=== PATIENT | female | born 1965 | race Caucasian/White ===

== ENCOUNTER → 2016-08-30 | Outpatient (CLI) | payer BC ==
[~2016-08-30] MED LIST: BACLOFEN 10MG T10 MG PO; CELEBREX200 MG PO; CYCLOBENZAPRINE10 M1 OR; CYMBALTA60 MG PO; FLECTOR1.3% TP; FLEXERIL10 MG PO; GABAPENTIN300 M1 PO; HYDROCODONE1 TABLET PO; KEFLEX 500MG.500 MG PO; LIDODERM 5% PA1 EACH TD; METOPROLOL SUCC50 M1 PO; NOMEDS XX; PANTOPRAZOLE SO40 M1 PO; SERTRALINE 100100 MG PO; VIBRAMYCIN 100100 MG PO
--- NOTE | 2016-08-30 19:24 | RADIOLOGY REPORT PS360 ---
KNEE-3 VIEWS-RT INDICATION: Unable straighten right knee due to pain swelling about knee TECHNIQUE: 3 views right knee COMPARISON: None available FINDINGS: No fracture nor dislocation apparent. Right knee intact with no fracture Cannot exclude an suspect small joint effusion suprapatella bursa Visualized joint space well maintained with only borderline narrowing of the medial compartment on this nonweightbearing study.. Normal mineralization. There is mild sharpening joint margins reflecting early marginal osteophyte formation. Subtle but noted and may reflect very early degenerative change.. . IMPRESSION: No fracture. No prominent findings. Suspect small joint effusion suprapatella bursa . Minor sharpening at joint margins may reflect very early degenerative change
== END ==
LOC: RAD 11:46
DX: M25.561 Pain in right knee (principal)

== ENCOUNTER → 2016-11-08 | Outpatient (CLI) | payer BC ==
[2016-11-08 09:12] LABS: BUN 19 mg/dL (7-18)
[2016-11-08 09:13] LABS: GFR (ESTIMATED) 88 ML/MIN (59-)
--- NOTE | 2016-11-11 06:41 | RADIOLOGY REPORT PS360 ---
MRI-BRAIN W/WO HISTORY: Syncope SYNCOPE, UNSPECIFIED SYNCOPE TYPE ORDERING PHYSICIAN: Edda Flores MD PATIENT AGE: 51 years COMPARISON: None TECHNIQUE: Standard multiplanar multiecho sequences are performed without and with contrast. FINDINGS: No midline shift, mass effect, intracranial hemorrhage, or hydrocephalus is evident. There is no obstructed diffusion. No evidence of acute infarction. No enhancing lesions are apparent. The cerebellopontine angles, cerebellum, and brainstem are unremarkable. The pituitary and optic chiasm and corpus callosum are unremarkable. There is minimal nonspecific T2 white matter hyperintensities noted in the frontal lobe and periventricular region. These do not enhance and do not show restricted diffusion and may be related to minimal periventricular ischemic gliotic change. The hippocampal gyri are unremarkable in the temporal horns are symmetric. No mastoid effusion minimal mucosal thickening of the paranasal sinuses nonspecific. IMPRESSION: 1. No acute intracranial pathology. 2. Nonspecific minimal white matter hyperintensities
== END ==
LOC: RAD 08:58
PROVIDERS: Family Medicine
DX: R55 Syncope and collapse (principal)
CPT/HCPCS: A9576

== ENCOUNTER 2016-12-24 10:53 | Emergency (ER) | payer BC ==
[~2016-12-24] VITALS: Ht 172.7 cm; Wt 108.9 kg
[2016-12-24] MEDS ORDERED: BACLOFEN10 MG PO (11:02)
[2016-12-24] MEDS ORDERED: TRAZODONE50 MG PO (11:03)
[2016-12-24] MEDS ORDERED: METOPROLOL SUCC50 M4 PO (11:03)
--- NOTE | 2016-12-24 11:17 | Emergency Room Report ---
History of Present Illness Time Seen by [id number] Presenting Problem in Triage Pt arrived:Walked Presenting Problem:PT FAMILY REPORTS EPISODE OF SUDDENLY "EVERYTHING GOES FUZZY " WHOLE BODY FELT NUMB AND LIMP, FAMILY REPORTS A BLANK STARE DURING EVENT AND THEN PT REPORTS FEELING LIKE HAVING A HEADACHE FOR A FEW MINUTES AFTERWARD AND THEN L JAW PAIN. 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 N Clinical Suspician of Infection? N Mental Status: 1 - Regular (Normal Baseline) Sepsis Risk:Low Sepsis Risk Have you (or family members/close friends) recently traveled outside the [place]? N If Yes, where/when: Have you had exposure to infectious disease within the past month? N TB? Other? Specify: Source patient, RN notes reviewed, family, RN/MD Exam Limitations no limitations Comment This is a 51-year-old lady arriving to the emergency room by POV, together with her daughter. 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 Episode lasted 4-5 minutes, witnessed by her daughter. Upon waking up she was having a headache, no neurological deficits. Patient advised that she was simply unable to communicate with anybody around, but she was not completely unresponsive. Apparently there is a lot of misscommunication between family members and patient, as she she has not disclosed to them that she has had similar episodes over the past 2 years. She hasn't recently seen her PCP who requested for her to neurologist, Dr. Tricia Hoyt, with whom she has an appointment on . Additionally patient has multiple other problems, including chronic low back pain, for which she takes Tylenol/Motrin, peripheral neuropathy for which she takes gabapentin, as well as hot flashes possibly postmenopausal. She has seen Dr. Flores for these hot flashes but PCP advised her to delay treatment of this condition based on her pending workup with neurology. ALLERGIES Coded Allergies: acetaminophen (From PERCOCET) (Mild, 11/08/16) oxycodone (From PERCOCET) (Mild, 11/08/16) Penicillins (11/08/16) Sulfa (Sulfonamide Antibiotics) (11/08/16) azithromycin (11/08/16) Home Medications Active Scripts Pantoprazole Sodium 40 MG PO QHS #30 TAB Ref 4 Prov: 03/15/14 Reported Medications DULOXETINE HCL (Cymbalta 60MG) 60 MG PO DAILY Gabapentin 300 MG PO TID #90 Baclofen 10 MG PO TID #90 TAB Trazodone Hcl (Trazodone HCl) 50 MG PO QHS #30 Metoprolol Succinate (Metoprolol Succinate XL) 50 MG PO DAILY #30 History Medical History General CAD? No Angina: Yes CT: No Hypertension? No Hyperlipidemia? No CHF? No DVT? No PE? No COPD? No Asthma? Yes Anemia? No GERD? No Gastric ulcers? No GI Bleed? No Hernia? Yes Thyroid Problems? No Hypothyroidism? No CVA? No Seizures? No Diabetes? No Renal Insuffiency? No End Stage Renal Disease? No UTI? No Stones? No GB Disease: No Nephritic Syndrome? No Asplenia? No Hepatitis? No Sickle Cell Disease? No Arthritis? Yes Migraines? No Cataracts? No Glaucoma? No MRSA? Yes HIV? No TB? No Anxiety? No Depression? No Cancer? No More? 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/A Family History Family Hx Diabetes Yes CAD Yes Hypertension Yes Hyperlipidemia Yes Cancer Yes TB No Social History Smoking Hx Smoker: Current Every Day Smoker Tobacco: Yes Type Cigarettes Packs/day 1 1/2 - 2 Packs Alcohol Alcohol: No Review of Systems All Other Systems Reviewed and Negative Psychiatric/Neurological other (syncopal episode) Physical Exam Vital Signs Vital Signs Date Time Temp Pulse Resp B/P Pulse O2 O2 Flow FiO2 Ox Delivery Rate 12/24 1445 98.0 72 20 130/74 95 12/24 1327 98.2 76 20 136/89 98 12/24 1215 74 20 135/99 97 12/24 1210 20 12/24 1055 98.1 75 18 131/91 96 General Appearance normal appearance, WD/WN, no apparent distress Eye Exam - bilateral eye normal exam, bilateral eye PERRL, bilateral eye EOMI Neck normal inspection, non-tender, supple, full range of motion Respiratory Status Yes: trachea midline, chest symmetrical, non tender chest. No: respiratory distress. Lung Sounds bilateral: normal breath sounds, lungs clear. 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 No Comment Family members, hereby present at patient's bedside, requests "something done" about patient's condition sooner than 01/07/17, date of her neurology appointment. I have asked one of the ER nurses, Freya Francis, to schedule patient with Dr. Sheikh, our neurologist, who could see patient in the office, this coming Friday.. Patient and family members were advised of attempt to switch her to a different neurologist, they refused to see Dr. Sheikh. Is no Tito called [facility] neurology, and I was able to personally discuss patient's care with her own neurologist, Dr. Tricia Hoyt, who has seen patient so far for peripheral neuropathy. Dr. Zeng agreed to switch patient's appointment to a sooner date, will have staff contact family, within 24 hours with a new appointment date. She also recommended patient to be started on Keppra, 250 mg 2x/day, for the first week, followed by Keppra, 500 mg 2x/day after worse. Patient advised to avoid heights, operate machinery, driving vehicles was seen and cleared by neurology. In my medical opinion patient does not have a life threatening condition at this time, she can have the rest of workup as outpatient, within the next few days, with neurology, as described above. Results/Orders Laboratory Tests 12/24/16 1158: Urine Color YELLOW, Urine Appearance CLEAR, Urine pH 6.0, Ur Specific [place] 1.010, Urine Protein NEGATIVE, Urine Ketones NEGATIVE, Urine Blood 2+ H, Urine Nitrate NEGATIVE, Urine Bilirubin NEGATIVE, Urine Urobilinogen 0.2, Ur Leukocyte Esterase NEGATIVE, Urine WBC OCC, Ur Squamous Epith Cells 5-10, Urine Bacteria 1 +, Urine Mucus OCC, Urine Glucose NEGATIVE 12/24/16 1155: Sodium 140, Potassium 4.0, Chloride 105, Carbon Dioxide 27, BUN 13, Creatinine 0.7, Estimated Creat Clear 162, Estimated GFR (MDRD) 88, Glucose 117 H, Calcium 8.5, Total Bilirubin 0.5, AST 12 L, ALT 23, Alkaline Phosphatase 91, Total Protein 6.9, Albumin 3.6, Globulin 3.3 H, Albumin/Globulin Ratio 1.1 12/24/16 1116: WBC 8.5, RBC 4.60, Hgb 13.8, Hct 40.4, MCV 87.8, RDW 16.6, Plt Count 266, Gran % 66.8, Gran # 5.7, Lymphocytes % 29.5, Monocytes % 3.7, Lymphocytes # 2.5, Monocytes # 0.3, PUBS MCHC 34.2, MCH 30.0 Orders Procedure Date/time Status DIET-NOTHING BY MOUTH 12/[address] HEAD REQ 12/24 1104 Complete IV SALINE LOCK 12/24 1104 Active URINALYSIS/COMPLETE 12/24 1104 Complete CBC WITH AUTO DIFF 12/24 1104 Complete CHEM 12 PROFILE 12/24 1104 Complete CM/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 of ischemic chgs, no ectopy, normal QRS, normal OH, normal EKG, no EKG for comparison, non-spec. ST/Twave chgs, ST elevation, ST depression, LBBB, RBBB, ectopy, abnormal Q waves XRAY/CT/US XRAY/CT/US CT head CT interpretation by discussed w/radiologist CT Results normal/NAD (no ICH), no fracture seen Departure Departure Time of Disposition 1415 Disposition DC Home or Self Care(routine) Clinical Impression Primary Impression: Seizure, petit mal Condition STABLE Referrals Mark DELGADO,Edda Rahman (PCP/Family) TRICIA HOYT Patient Instructions Seizure Disorder -- Adult Additional Instructions Please follow-up with Dr. Tricia Hoyt as soon as possible. Please discontinue the Cymbalta immediately, as one of its side effects please epilepsy/seizures. Dr. Hoyt recommended starting you on a seizure medication, Keppra 250mg 2x/ day for 1st week, after which you can increase the dose to 500mg 2x/day. Dr. Zeng's office advised that they will call today or tomorrow and reschedule your appointment sooner. Please do NOT climb on heights, operate machinery, drive till seen and cleared by the neurologist. Discharge Counseling Counseled pt/family regarding diagnosis, test results, medications/RX, home care, follow up needs Comment Please follow-up with Dr. Tricia Hoyt as soon as possible. Please discontinue the Cymbalta immediately, as one of its side effects please epilepsy/seizures. Dr. Hoyt recommended starting you on a seizure medication, Keppra 250mg 2x/ day for 1st week, after which you can increase the dose to 500mg 2x/day. Dr. Zeng's office advised that they will call today or tomorrow and reschedule your appointment sooner. Please do NOT climb on heights, operate machinery, drive till seen and cleared by the neurologist. Prescriptions Current Visit Scripts Levetiracetam (Keppra) 250 MG PO BID #14 TAB Levetiracetam (Keppra) 500 MG PO BID #42 TAB TIZANIDINE HCL (Zanaflex) 2 MG PO TIDP PRN pain #30 CAP ED Critical Care Critical Care No at 0911
[2016-12-24 11:25] LABS: HEMOGLOBIN 13.8 g/dL (12.2-16.2)
[2016-12-24 11:26] LABS: LYMPH # 2.5 K/mm3 (0.7-4.5); LYMPH % 29.5 % (10-50.0)
[2016-12-24 12:08] LABS: URINE BILIRUBIN - DIPSTICK NEGATIVE (NEG); URINE BLOOD 2+ (NEG)
[2016-12-24] MEDS ORDERED: KEPPRA250 MG PO (14:31)
[2016-12-24] MEDS ORDERED: KEPPRA500 MG PO (14:31)
[2016-12-24 14:45] VITALS: BP 130/74
--- NOTE | 2016-12-24 15:30 | RADIOLOGY REPORT PS360 ---
CT HEAD W/O CONTRAST COMPARISON: CT scan of brain noncontrast 04/08/2015 HISTORY: Headache, possible syncope TECHNIQUE: Multiple axial scans were obtained from base skull to the vertex and were performed without IV contrast. FINDINGS: The base of skull appears normal except for mild inflammatory changes of the ethmoid sinuses. The mastoids are clear. The ventricular system is normal. There is no ischemic infarct or bleed and there are no extra-axial fluid collections. There is only minor atrophy consistent with patient's age. The bony calvarium appears intact. IMPRESSION: Minor inflammatory changes of the ethmoid sinuses probably acute and chronic otherwise negative noncontrast CT scan of brain
[2016-12-24] MEDS ORDERED: ZANAFLEX2 M1 PO (15:36)
== END 2016-12-24 14:45 | disposition home or self-care (01) ==
LOC: ER 10:53
PROVIDERS: Emergency Medicine
DX: G40.409 Other generalized epilepsy and epileptic syndromes, not intractable, without status epilepticus (principal)
CPT/HCPCS: J2405

== ENCOUNTER 2017-01-07 12:48 | Emergency (ER) | payer BC ==
[~2017-01-07] VITALS: Ht 172.7 cm; Wt 111.1 kg
[~2017-01-07 12:48] MED LIST changes: +BACLOFEN10 MG PO; +KEPPRA250 MG PO; +KEPPRA500 MG PO; +METOPROLOL SUCC50 M4 PO; +TRAZODONE50 MG PO; +ZANAFLEX2 M1 PO
[2017-01-07] MEDS ORDERED: TOPIRAMATE50 MG PO (12:58)
--- NOTE | 2017-01-07 12:59 | Emergency Room Report ---
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 Clinical Suspician of Infection? Mental Status: Sepsis Risk: Have you (or family members/close friends) recently traveled outside the [place]? If Yes, where/when: Have you had exposure to infectious disease within the past month? TB? Other? Specify: Patient with a known sz d/o, diagnosed two years ago, with increasing frequency over the past two months. Seen in ER recently and patient initiated on Keppra, with continued sz; has had five sz today and averages about eight a day, per daughter. Patient recently evaluated by her neurologist, Dr. Tricia Hoyt, and Keppra dosing increased with no change in sz pattern or frequency. Generally she will stare off in space, and her right arm shakes. Patient had a witnessed sz in the hospital lobby while being brought in by her daughter. She arrives alert without any sz activity. No trauma reported. No fever. No chest pain. Patient alert and cooperative on arrival. ALLERGIES Coded Allergies: acetaminophen (From PERCOCET) (Mild, 11/08/16) oxycodone (From PERCOCET) (Mild, 11/08/16) Penicillins (11/08/16) Sulfa (Sulfonamide Antibiotics) (11/08/16) azithromycin (11/08/16) Home Medications Active Scripts Pantoprazole Sodium 40 MG PO QHS #30 TAB Ref 4 Prov: 03/15/14 Levetiracetam (Keppra) 500 MG PO BID #42 TAB Prov: 12/24/16 TIZANIDINE HCL (Zanaflex) 2 MG PO TIDP PRN pain #30 CAP Prov: 12/24/16 Reported Medications DULOXETINE HCL (Cymbalta 60MG) 60 MG PO DAILY Gabapentin 300 MG PO TID #90 Baclofen 10 MG PO TID #90 TAB Trazodone Hcl (Trazodone HCl) 50 MG PO QHS #30 Metoprolol Succinate (Metoprolol Succinate XL) 50 MG PO DAILY #30 Topiramate 50 MG PO DAILY #120 History Medical History General CAD? No Angina: Yes OR: No Hypertension? No Hyperlipidemia? No CHF? No DVT? No PE? No COPD? No Asthma? Yes Anemia? No GERD? No Gastric ulcers? No GI Bleed? No Hernia? Yes Thyroid Problems? No Hypothyroidism? No CVA? No Seizures? No Diabetes? No Renal Insuffiency? No End Stage Renal Disease? No UTI? No Stones? No GB Disease: No Nephritic Syndrome? No Asplenia? No Hepatitis? No Sickle Cell Disease? No Arthritis? Yes Migraines? No Cataracts? No Glaucoma? No MRSA? Yes HIV? No TB? No Anxiety? No Depression? No Cancer? No More? Yes Additional hx: FIBROMYALGIA PALPITATIONS Immunization Hx DT/Tetanus 1-4 Years Ago Flu 2012-FSN Pneumonia Refuses Surgical Hx Previous Surgery?Y HERNIA REPAIR TONSILECTOMY HYSTERECTOMY FOOT SURGERY D & c LUMP REMOVED BREAST Family History Family Hx Diabetes Yes CAD Yes Hypertension Yes Hyperlipidemia Yes Cancer Yes TB No Social History Smoking Hx Packs/day 1 1/2 - 2 Packs Alcohol Alcohol: No Review of Systems All Other Systems Reviewed and Negative Psychiatric/Neurological see HPI Physical Exam Vital Signs Vital Signs Date Time Temp Pulse Resp B/P Pulse O2 O2 Flow FiO2 Ox Delivery Rate 01/07 1250 97.9 85 18 133/78 95 General Appearance normal appearance, WD/WN, no apparent distress Eye Exam - bilateral eye normal exam, bilateral eye PERRL, bilateral eye EOMI (no diplopia) Ear, Nose, Throat hearing grossly normal (atraumatic) Neck normal inspection, non-tender, supple, full range of motion Respiratory Status Yes: trachea midline, chest symmetrical, non tender chest. No: respiratory distress, tender on palpation, use of accessory muscles, pain on inspiration, pain on expiration. Lung Sounds bilateral: normal breath sounds, lungs clear. 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 No Results/Orders Laboratory Tests 01/07/17 1250: Sodium 139, Potassium 3.7, Chloride 105, Carbon Dioxide 26, BUN 16, Creatinine 1.0, Estimated Creat Clear 115, Estimated GFR (MDRD) 58 L, Glucose 96, Calcium 9.5, Magnesium 1.9, Total Bilirubin 0.6, AST 10 L, ALT 28, Alkaline Phosphatase 88, Total Protein 7.8, Albumin 4.3, Globulin 3.5 H, Albumin/Globulin Ratio 1.2, WBC 9.1, RBC 4.75, Hgb 14.2, Hct 42.6, MCV 89.7, RDW 13.8, Plt Count 290, MPV 5.6 L, Gran % 60.5, Gran # 5.5, Lymphocytes % 32.8, Monocytes % 3.6, Eosinophils % 2.3, Basophils % 0.8, Lymphocytes # 3.0, Monocytes # 0.3, Eosinophils # 0.2, Basophils # 0.1, PUBS MCHC 33.2, MCH 29.8 Current Medication Orders Sig/Janice Start time Last Medication Dose Route Stop Time Status Admin Sodium Chloride 10 ML PRN PRN 01/07 1300 AC IV 01/08 1253 Orders Procedure Date/time Status ELECTROCARDIOGRAM REQUEST 01/07 1323 Active ELECTROCARDIOGRAM REQUEST 01/07 1253 Active IV SALINE LOCK 01/07 1253 Active GEN NSG/PT REQ (NOT FOR MEDS!) 01/07 1253 Active MAGNESIUM 01/07 1253 Complete FSBS REQUEST BY [facility] 01/07 1253 Active CBC WITH AUTO DIFF 01/07 1253 Complete CHEM 12 PROFILE 01/07 1253 Complete 12 LEAD EKG-ANI (INITIAL) 01/07 UNK Active CM/EKG CM/EKG EKG rate, NSR, rhythm, no evid. of ischemic chgs, no ectopy, normal QRS, normal MO, normal EKG (NSR 77;) Consult MD Physician Consult Consult/PCP Has sz focus L hemisphere; is being titrated on Keppra. Time Called 1358 Reason Pt. Condition Comments Dr. Tricia Hoyt, pt's neurologist, [facility]. Progress ED Progress Notes Date 01/07/17 Time 1405 Comment d/w patient's neurologist. Potential for "stress seizure"; recommend 50 Topamax BID increase every two to three days by 50 mg until it's 100 mg PO BID; drink lots of water; stop Keppra; f/u Dr. Hoyt. . If still not "coming around" between "spells" needs to go to ER. Hard to tell if "stress spells" or seizures, but ok to go home and try this medication. Departure Departure Time of Disposition 1407 Disposition DC Home or Self Care(routine) Clinical Impression Primary Impression: Seizures Condition STABLE Referrals TRICIA HOYT Patient Instructions Seizure Disorder -- Adult Additional Instructions STOP Keppra and increase Topamax by 50 mg every two or three days until you are up to 100 mg by mouth twice daily per Dr. Hoyt, then see Dr. Hoyt for follow up next week. Discharge Counseling Counseled pt/family regarding diagnosis, test results, medications/RX, home care, follow up needs Prescriptions Current Visit Scripts Topiramate (Topamax) 100 MG PO BID #30 TAB ED Critical Care Critical Care No at 141
[2017-01-07 13:03] LABS: HEMOGLOBIN 14.2 g/dL (12.2-16.2); LYMPH % 32.8 % (10-50.0)
[2017-01-07] MEDS ORDERED: TOPAMAX50 MG PO (14:12)
[2017-01-07 14:20] VITALS: BP 106/64
--- OUTSIDE RECORDS SUMMARY | 2017-01-14 02:54 | External Medical Summary Rpt ---
Author Author [employer] Organization [employer] Address Unknown Phone Unavailable Purpose Continuity of Care Document - through 2016
--- OUTSIDE RECORDS SUMMARY | 2017-01-14 02:54 | External Medical Summary Rpt ---
Author Author , Organization [employer] Address Unknown Phone Unavailable Purpose Continuity of Care Document - 12-29-2016 through 2016 Problems Code Diagnosis DOS Provider Status G40.A09 ABSENCE EPILEPTIC SYNDROME, NOT INTRACTABLE , W/O STAT EPI R56.9 UNSPECIFIED CONVULSIONS Results Labs Lab Lab Date Result Refere Interp Status Commen Order Detail nces retati t Range on Troponin T SerPl Ql (12-29-2016 18:46) Troponi 0.00 0.00-0. complet n I 017 ng/mL 07 ed SerPl-m 18:46 Cnc CBC W Diff pnl,unspecified Bld (12-29-2016 18:44) WBC 12-29- 9.41 3.50-10 complet nRBC 017 10*3/mm .80 ed cor # 18:44 3 Bld RBC # 12-29-2 4.62 3.89-5. complet Bld 017 10*6/mm 14 ed Auto 18:44 3 Hgb 12-29-2 13.8 11.5-15 complet Bld-mCn 017 g/dL .5 ed c 18:44 Hct VFr 12-29-2 42.4 % 34.5-44 complet Bld 017 .0 ed Auto 18:44 MCV RBC 12-29-2 91.8 fL 80.0-99 complet Auto 017 .0 ed 18:44 MCH RBC 14-2 29.9 pg 27.0-31 complet Qn 017 .0 ed Auto 18:44 MCHC 14-2 32.5 32.0-36 complet RBC 017 g/dL .0 ed Auto-mC 18:44 nc RDW RBC 14-2 14.5 % 11.3-14 complet 017 .5 ed Auto-Rt 18:44 o RDW RBC -14-2 48.9 fl 37.0-54 complet Auto 017 .0 ed 18:44 PMV Bld 12-29-2 9.1 fL 6.0-12. complet Auto 017 0 ed 18:44 Platele 05-14-2 228 150-450 complet t # Bld 017 10*3/mm ed Auto 18:44 3 Neutrop 05-14-2 54.8 % 41.0-71 complet hils/le 017 .0 ed uk NFr 18:44 Bld Auto Lymphoc 05-14-2 34.9 % 24.0-44 complet ytes/le 017 .0 ed uk NFr 18:44 Bld Auto Monocyt 05-14-2 5.7 % 0.0-12. complet es/leuk 017 0 ed NFr 18:44 Bld Auto Eosinop 05-14-2 4.1 % 0.0-3.0 complet hil/hari 017 ed k NFr 18:44 Bld Auto Basophi 05-14-2 0.4 % 0.0-1.0 complet ls/leuk 017 ed NFr 18:44 Bld Auto Imm 05-14-2 0.1 % 0.0-0.6 complet Granulo 017 ed cytes/l 18:44 euk NFr Bld Neutrop 05-14-2 5.15 1.50-8. complet hils # 017 10*3/mm 30 ed Bld 18:44 3 Auto Lymphoc 05-14-2 3.28 0.60-4. complet ytes # 017 10*3/mm 80 ed Bld 18:44 3 Auto Monocyt 05-14-2 0.54 0.00-1. complet es # 017 10*3/mm 00 ed Bld 18:44 3 Auto Eosinop 05-14-2 0.39 0.10-0. complet hil # 017 10*3/mm 30 ed Bld 18:44 3 Auto Basophi 05-14-2 0.04 0.00-0. complet ls # 017 10*3/mm 20 ed Bld 18:44 3 Auto Imm 05-14-2 0.01 0.00-0. complet Granulo 017 10*3/mm 03 ed cytes # 18:44 3 Bld Mg Ionized SerPl-[facility] (12-29-2016 18:44) Magnesi 05-14-2 1.8 1.3-2.7 complet um 017 mg/dL ed SerPl-m 18:44 Cnc Comp Metab 1998 Pnl SerPl (12-29-2016 18:44) Glucose 101 70-100 complet 017 mg/dL ed Bld-mCn 18:44 c BUN 15 9-23 complet Bld-mCn 017 mg/dL ed c 18:44 Creat 0.70 0.60-1. complet Bld-mCn 017 mg/dL 30 ed c 18:44 Sodium 144 132-146 complet Bld-sCn 017 mmol/L ed c 18:44 Potassi 3.8 3.5-5.5 complet um 017 mmol/L ed Bld-sCn 18:44 c Chlorid 109 99-109 complet e 017 mmol/L ed SerPl-s 18:44 Cnc CO2 30.0 20.0-31 complet SerPl-s 017 mmol/L .0 ed Cnc 18:44 Calcium 10.0 8.7-10. complet 017 mg/dL 4 ed XXX-sCn 18:44 c Prot 7.0 5.7-8.2 complet SerPl-m 017 g/dL ed Cnc 18:44 Albumin 4.40 3.20-4. complet 017 g/dL 80 ed SerPl-m 18:44 Cnc ALT 18 U/L 7-40 complet SerPl w 017 ed 18:44 P-5'-P- cCnc AST 16 U/L 0-33 complet SerPl-c 017 ed Cnc 18:44 ALP 84 U/L 25-100 complet SerPl-c 017 ed Cnc 18:44 Bilirub 0.4 0.3-1.2 complet 017 mg/dL ed SerPl-m 18:44 Cnc GFR/BSA 88 >60 complet .pred 017 mL/min/ ed SerPl 18:44 1.73 MDRD-Ar VRat Globuli 2.6 complet n Ur 017 gm/dL ed Elph-mC 18:44 nc Albumin 1.7 1.5-2.5 complet /Glob 017 g/dL ed SerPl 18:44 BUN/Cre 05-14-2 21.4 7.0-25. complet at 017 0 ed SerPl 18:44 Anion 05-14-2 5.0 3.0-11. complet Gap3 017 mmol/L 0 ed SerPl-s 18:44 Cnc
--- OUTSIDE RECORDS SUMMARY | 2017-01-14 02:54 | External Medical Summary Rpt ---
Author Author , Organization [employer] Address Unknown Phone Unavailable Purpose Continuity of Care Document - 06-15-2007 through 2016 Immunization Name Date Route CVX Reacti Commen Provid Is Given on t er Refuse d Hep B, Histor H149 No adult 2006 ical Inform ation - Source Unspec ified Hib-He Histor H149 No p B 2006 ical (Comva Inform x) ation - Source Unspec ified
--- OUTSIDE RECORDS SUMMARY | 2017-01-14 02:54 | External Medical Summary Rpt ---
Author Author LISSY Praveen, [employer] Organization [employer] Address Unknown Phone Unavailable Results Comprehensive metabolic 2000 panel in Serum or Plasma Observa Value Referen Units Interpr Notes Date tion ce etation Range Albumin/G 1.1 - 1.8 No Normal No January 07 lobulin informati informati 2016 [Mass on in on in 12:50 PM ratio] in source source Serum or data data Plasma Albumin 3.4 - 5.0 gm/dL Normal No January 07 [Mass/vol informati 2016 ume] in on in 12:50 PM Serum or source Plasma data Alkaline 46 - 116 U/L Normal No January 07 phosphata informati 2016 se on in 12:50 PM [Enzymati source c data activity/ volume] in Serum or Plasma Bilirubin 0.2 - 1.0 mg/dL Normal No January 07 .total informati 2016 [Mass/vol on in 12:50 PM ume] in source Serum or data Plasma Urea 7 - 18 mg/dL Normal No January 07 nitrogen informati 2016 [Mass/vol on in 12:50 PM ume] in source Serum or data Plasma Calcium 8.5 - mg/dL Normal No January 07 [Mass/vol 10.1 informati 2016 ume] in on in 12:50 PM Serum or source Plasma data Chloride 98 - 107 mmoL/L Normal No January 07 [Moles/vo informati 2016 lume] in on in 12:50 PM Serum or source Plasma data Carbon 21.0 - mmoL/L Normal No January 07 dioxide, 32.0 informati 2016 total on in 12:50 PM [Moles/vo source lume] in data Serum or Plasma Creatinin 0.55 - mg/dL Normal No January 07 e 1.02 informati 2016 [Mass/vol on in 12:50 PM ume] in source Serum or data Plasma Creatinin 50 - 200 ML/MIN Normal No January 07 e renal informati 2016 clearance on in 12:50 PM source predicted data by Cockcroft -Gault formula Estimated 59- ML/MIN Low REFERENCE January 07 RANGE: 2016 glomerula >60 12:50 PM r ML/MIN/1. filtratio 73 SQUARE n rate METERSIf (GF this patient is -A merican, then multiply theresult by 1.210. Globulin 1.3 - 3.2 gm/dL High No January 07 [Mass/vol informati 2016 ume] in on in 12:50 PM Serum source data Glucose 74 - 106 mg/dL Normal No January 07 [Mass/vol informati 2016 ume] in on in 12:50 PM Serum or source Plasma data Potassium 3.5 - 5.1 mmoL/L Normal No January 072016 [Moles/vo on in 12:50 PM lume] in source Serum or data Plasma Sodium 136 - 145 mmoL/L Normal No January 07 [Moles/vo informati 2016 lume] in on in 12:50 PM Serum or source Plasma data Aspartate 15 - 37 U/L Low No January 072016 aminotran on in 12:50 PM sferase source [Enzymati data c activity/ volume] in Serum or Plasma Alanine 12 - 78 U/L Normal No January 07 aminotran 2016 sferase on in 12:50 PM [Enzymati source c data activity/ volume] in Serum or Plasma Protein 6.4 - 8.2 gm/dL Normal No January 07 [Mass/vol informati 2016 ume] in on in 12:50 PM Serum or source Plasma data Magnesium [Moles/volume] in Unspecified specimen Observa Value Referen Units Interpr Notes Date tion ce etation Range Magnesium 1.4 - 2.2 mg/dL Normal No January 072016 [Moles/vo on in 12:50 PM lume] in source Unspecifi data ed specimen CBC W Auto Differential panel in Blood Observa Value Referen Units Interpr Notes Date tion ce etation Range Basophils 0 - 0.2 K/MM3 Normal No January 072016 [#/volume on in 12:50 PM ] in source Blood by data Automated count Basophils 0.1 - 2.0 % Normal No January 072016 leukocyte on in 12:50 PM s in source Blood by data Automated count Eosinophi 0.0 - 0.4 K/mm3 Normal No January 07 ls 2016 [#/volume on in 12:50 PM ] in source Blood by data Automated count Eosinophi 0.1 - % Normal No January 07 ls/100 12.0 inform2016 leukocyte on in 12:50 PM s in source Blood by data Automated count Granulocy 1.8 - 7.8 K/mm3 Normal No January 07 fco informati 2016 [#/volume on in 12:50 PM ] in source Blood by data Automated count Granulocy 37.0 - % Normal No January 07 fco/100 80.0 inform2016 leukocyte on in 12:50 PM s in source Blood by data Automated count Hematocri 37.0 - % Normal No January 07 t [Volume 47.0 informati 2016 on in 12:50 PM Fraction] source of Blood data Hemoglobi 12.2 - g/dL Normal No January 07 n 16.2 informati 2016 [Mass/vol on in 12:50 PM ume] in source Blood data Lymphocyt 0.7 - 4.5 K/mm3 Normal No January 07 es informati 2016 [#/volume on in 12:50 PM ] in source Unspecifi data ed specimen by Automated count Lymphocyt 10 - 50.0 % Normal No January 07 es informati 2016 [#/volume on in 12:50 PM ] in source Unspecifi data ed specimen by Automated count Erythrocy 27 - 31.2 pg Normal No January 07 te mean 2016 corpuscul on in 12:50 PM ar source hemoglobi data n [Entitic mass] Erythrocy 31.8 - g/dl Normal No January 07 te mean 35.4 2016 corpuscul on in 12:50 PM ar source hemoglobi data n concentra tion [Mass/vol ume] by Automated count Erythrocy 82.2 - fl Normal No January 07 te mean 97.8 2016 corpuscul on in 12:50 PM ar volume source [Entitic data volume] by Automated count Monocytes 0.1 - 1.0 K/mm3 Normal No January 07 inform2016 [#/volume on in 12:50 PM ] in source Blood by data Automated count Monocytes 1.7 - 9.3 % Normal No January 072016 leukocyte on in 12:50 PM s in source Blood by data Automated count Platelet 7.4 - fl Low No January 07 mean 10.4 informati 2016 volume on in 12:50 PM [Entitic source volume] data in Blood by Automated count Platelets 142 - 424 K/mm3 Normal No January 07 informati 2016 [#/volume on in 12:50 PM ] in source Blood data Erythrocy 4.2 - 5.4 M/mm3 Normal No January 07 fco informati 2016 [#/volume on in 12:50 PM ] in source Amniotic data fluid Erythrocy 11.5 - % Normal No January 07 te 17.5 informati 2016 distribut on in 12:50 PM ion width source [Entitic data volume] by Automated count Leukocyte 4.8 - K/MM3 Normal No January 07 s 10.8 informati 2016 [#/volume on in 12:50 PM ] in source Blood data
--- OUTSIDE RECORDS SUMMARY | 2017-01-14 02:54 | External Medical Summary Rpt ---
[...] cytes # [id number] 3 Bld [facility]12[facility]2016 18:44[facility] Magnesi 05-14-2 1.8 1.3-2.7 complet [...]
== END 2017-01-07 14:20 | disposition home or self-care (01) ==
LOC: ER 12:48
PROVIDERS: Emergency Medicine
DX: R56.9 Unspecified convulsions (principal)

== ENCOUNTER 2017-04-28 17:37 | Observation (INO) | payer BC ==
[2017-04-28] VITALS (11 sets, daily range): BP systolic 90–118; BP diastolic 45–62
[~2017-04-28] VITALS: Ht 172.7 cm; Wt 92.5 kg
[~2017-04-28 17:37] MED LIST changes: +TOPAMAX50 MG PO; +TOPIRAMATE50 MG PO
--- NOTE | 2017-04-28 18:04 | Emergency Room Report ---
History of Present Illness Time Seen by [id number] Presenting Problem in Triage Pt arrived:Walked Presenting Problem:PT C/O RIGHT LOWER QUAD PAIN THAT HAS BEEN GOING ON SINCE FRIDAY. 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 N Clinical Suspician of Infection? N Mental Status: 1 - Regular (Normal Baseline) Sepsis Risk:Low Sepsis Risk Have you (or family members/close friends) recently traveled outside the [place]? N If Yes, where/when: Have you had exposure to infectious disease within the past month? N TB? Other? Specify: 2 day hx of "doubling over " in pain, diminished appetite, last meal last night. No fever, no diarrhea, no blood from above or below; seen by PCP with referral to ED due to RLQ abdominal pain and tenderness on exam, r/o appendicitis. Pain is localized to RLQ and is nonradiating. She has urinary pressure, but no sherie dysuria or frequency; no hematuria. ALLERGIES Coded Allergies: acetaminophen (From PERCOCET) (Mild, 11/08/16) oxycodone (From PERCOCET) (Mild, 11/08/16) Penicillins (11/08/16) Sulfa (Sulfonamide Antibiotics) (11/08/16) azithromycin (11/08/16) Home Medications Active Scripts Pantoprazole Sodium 40 MG PO QHS #30 TAB Ref 4 Prov: 03/15/14 Topiramate (Topamax) 100 MG PO BID #30 TAB Prov: 01/07/17 Levetiracetam (Keppra) 500 MG PO BID #42 TAB Prov: 12/24/16 TIZANIDINE HCL (Zanaflex) 2 MG PO TIDP PRN pain #30 CAP Prov: 12/24/16 Reported Medications DULOXETINE HCL (Cymbalta 60MG) 60 MG PO DAILY Gabapentin 300 MG PO TID #90 Baclofen 10 MG PO TID #90 TAB Trazodone Hcl (Trazodone HCl) 50 MG PO QHS #30 Metoprolol Succinate (Metoprolol Succinate XL) 50 MG PO DAILY #30 Topiramate 50 MG PO DAILY #120 History Medical History General CAD? No Angina: Yes OR: No Hypertension? No Hyperlipidemia? No CHF? No DVT? No PE? No COPD? No Asthma? Yes Anemia? No GERD? No Gastric ulcers? No GI Bleed? No Hernia? Yes Thyroid Problems? No Hypothyroidism? No CVA? No Seizures? Yes Diabetes? No Renal Insuffiency? No End Stage Renal Disease? No UTI? No Stones? No GB Disease: No Nephritic Syndrome? No Asplenia? No Hepatitis? No Sickle Cell Disease? No Arthritis? Yes Migraines? No Cataracts? No Glaucoma? No MRSA? Yes HIV? No TB? No Anxiety? No Depression? No Cancer? No More? 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 Psychiatric/Neurological see HPI Physical Exam Vital Signs Vital Signs Date Time Temp Pulse Resp B/P Pulse O2 O2 Flow FiO2 Ox Delivery Rate 04/28 1845 98.2 91 16 105/62 98 04/28 1741 98.2 91 16 105/62 98 General Appearance normal appearance, WD/WN, no apparent distress Eye Exam - bilateral eye normal exam, bilateral eye PERRL, bilateral eye EOMI Neck normal inspection, non-tender, supple, full range of motion Respiratory Status Yes: trachea midline, chest symmetrical, non tender chest. No: respiratory distress, tender on palpation, use of accessory muscles, pain on inspiration, pain on expiration, productive cough, non productive cough. Lung Sounds bilateral: normal breath sounds, lungs clear. Cardiovascular normal exam, regular rate/rhythm, no peripheral edema, no gallop, no JVD, no murmur, no rub, normal peripheral pulses Gastrointestinal normal bowel sounds, soft, no organomegaly, no pulsatile mass, no guarding, no rebound, tenderness (pain over McBurney's) Back normal inspection, no CVA tenderness, bowel/bladder continent Strength 5 Upper Ext (L), 5 Upper Ext (R), 5 Lower Ext (L), 5 Lower Ext (R) Neurologic alert, normal exam, no motor/sensory deficits, oriented x 3 Glascow Coma Scale Glascow Coma Scale Response Value EYE response: 4 Spontaneously 4 MOTOR response: 6 OBEYS 6 VERBAL response: 5 Oriented & Converses 5 Total 15 Skin intact, normal color, warm/dry Medical Decision Making LABS/Meds/Orders Pt receiving controlled substance in ED? No Results/Orders Laboratory Tests 04/28/171829: Sodium 138, Potassium 3.4 L, Chloride 101, Carbon Dioxide 24, BUN 10, Creatinine 0.8, Estimated Creat Clear 120, Estimated GFR (MDRD) 75, Glucose 86, Calcium 9.3, Total Bilirubin 0.9, AST 19, ALT 33, Alkaline Phosphatase 99, Total Protein 8.2, Albumin 4.2, Globulin 4.0 H, Albumin/Globulin Ratio 1.1, WBC 10.6, RBC 4.72, Hgb 14.3, Hct 42.1, MCV 89.1, RDW 13.6, Plt Count 242, MPV 7.1 L, Gran % 64.4, Gran # 6.8, Lymphocytes % 29.5, Monocytes % 3.8, Eosinophils % 1.8, Basophils % 0.5, Lymphocytes # 3.1, Monocytes # 0.4, Eosinophils # 0.2, Basophils # 0.1, PUBS MCHC 34.0, MCH 30.3 04/28/171824: Urine Color YELLOW, Urine Appearance CLEAR, Urine pH 6.0, Ur Specific [place] <= 1.005, Urine Protein NEGATIVE, Urine Ketones NEGATIVE, Urine Blood 1+ H, Urine Nitrate NEGATIVE, Urine Bilirubin NEGATIVE, Urine Urobilinogen 0.2, Ur Leukocyte Esterase TRACE H, Urine Glucose NEGATIVE Current Medication Orders Sig/Janice Start time Last Medication Dose Route Stop Time Status Admin Lidocaine HCl 0 .STK-MED ONE 04/28 1849 DC .ROUTE Ropivacaine 0 .STK-MED ONE 04/28 1849 DC .ROUTE Fentanyl Citrate 0 .STK-MED ONE 04/28 1845 DC IV Midazolam HCl 0 .STK-MED ONE 04/28 1844 DC .ROUTE Sodium Chloride 10 ML PRN PRN 04/28 1830 AC IV 04/29 1826 Orders Procedure Date/time Status DIET-NOTHING BY MOUTH 04/29 B Active Decision to admit 04/28 1852 Active IV SALINE LOCK 04/[address] ABD W/RLQ PAIN REQ 04/28 174 Complete URINALYSIS/COMPLETE 04/28 174 Complete CBC WITH AUTO DIFF 04/28 1749 Complete CHEM 12 PROFILE 04/28 1749 Complete XRAY/CT/US XRAY/CT/US CT abdomen, pelvis CT interpretation by reviewed by me, discussed w/radiologist Time results known: 184 CT Results abnormal (acute appendicitis 14 mm) Consult MD Physician Consult 1 Time Called 1820 Reason Admission, Surgical eval/care Comments Dr. Pacheco coming to eval patient; she is NPO except due her seizure medications. Physician Consult 2 Consult/PCP Dr. Pike covering for Dr. Flores; will admit to Dr. Flores Time Called 182 Reason Admission (PCP paged) Departure Departure Time of Disposition 185 Disposition Still a Patient Clinical Impression Primary Impression: Acute appendicitis Condition STABLE ED Critical Care Critical Care No at 1855
--- NOTE | 2017-04-28 18:21 | RADIOLOGY REPORT PS360 ---
CT ABD PELVIS W/O CONTRAST CLINICAL INDICATION: RLQ ABDOMINAL PAIN ORDERING PHYSICIAN: Amparo Herron MD PATIENT AGE: 51 years COMPARISON: None TECHNIQUE: Axial images obtained with sagittal and coronal reformats. PROCEDURE: Oral Contrast: None IV Contrast: None . FINDINGS: There are mild centrilobular emphysematous changes in the left lung base. Scattered areas of decreased attenuation are present in the liver the largest in the lateral segment the left hepatic lobe at 13 mm and may represent hepatic cysts. No radio opaque gallstones or biliary dilatation. The spleen, adrenal glands, and pancreas have an unremarkable unenhanced CT appearance. 5 mm stone is present in the mid aspect of the left kidney. A punctate calculus is present in the lower pole left kidney and in the lower and upper pole the right kidney. No ureteral calculi or hydronephrosis is evident. The appendix is thickened measuring up to 14 mm in diameter with stranding of the periappendiceal fat consistent with appendicitis. There is no evidence of abscess or perforation. There is a hyperdensity present at the ileocecal valve probably related to something the patient has ingested. No evidence of diverticulitis. There are post hysterectomy changes. There is mild sclerosis of the iliac side of the right SI joint inferiorly. No acute bony anomalies are evident. IMPRESSION: 1. The findings are consistent with acute appendicitis. No evidence of abscess or perforation. 2. Bilateral nephrolithiasis Significant findings called to Amparo Herron MD on 04/28/2017 6:13 PM.
[2017-04-28 18:28] LABS: URINE BILIRUBIN - DIPSTICK NEGATIVE (NEG); URINE BLOOD 1+ (NEG)
[2017-04-28 18:50] LABS: HEMOGLOBIN 14.3 g/dL (12.2-16.2); LYMPH # 3.1 K/mm3 (0.7-4.5); LYMPH % 29.5 % (10-50.0)
--- NOTE | 2017-04-28 19:13 | HISTORY AND PHYSICAL REPORT ---
History of Present Illness Chief Complaint: Abdominal pain History of Present Illness: Patient is a 51-year-old white female. She gives a 2 day history of pain in the RIGHT lower quadrant. It was quite significant yesterday and has been intermittently severe. She's had significant anorexia. [facility] was [facility] and [facility] office and sent to the emergency department. Upon presentation to the emergency department patient underwent noncontrast CT scan of the abdomen and pelvis which revealed findings consistent with acute appendicitis. Surgical consultation was obtained. She underwent laboratory evaluation. Past Medical History Reports: asthma, GERD. Surgical History Previous Surgery?Y HERNIA REPAIR TONSILECTOMY HYSTERECTOMY FOOT SURGERY D & c LUMP REMOVED BREAST Allergies Coded Allergies: acetaminophen (From PERCOCET) (Mild, 11/08/16) oxycodone (From PERCOCET) (Mild, 11/08/16) Penicillins (11/08/16) Sulfa (Sulfonamide Antibiotics) (11/08/16) azithromycin (11/08/16) Medications: Active Scripts Pantoprazole Sodium 40 MG PO QHS #30 TAB Ref 4 Prov: 03/15/14 Topiramate (Topamax) 100 MG PO BID #30 TAB Prov: 01/07/17 Levetiracetam (Keppra) 500 MG PO BID #42 TAB Prov: 12/24/16 TIZANIDINE HCL (Zanaflex) 2 MG PO TIDP PRN pain #30 CAP Prov: 12/24/16 Reported Medications DULOXETINE HCL (Cymbalta 60MG) 60 MG PO DAILY Gabapentin 300 MG PO TID #90 Baclofen 10 MG PO TID #90 TAB Trazodone Hcl (Trazodone HCl) 50 MG PO QHS #30 Metoprolol Succinate (Metoprolol Succinate XL) 50 MG PO DAILY #30 Topiramate 50 MG PO DAILY #120 Additional medical history: Fibromyalgia Smoking Hx Tobacco: Yes Smoker: Current Every Day Smoker Type: Cigarettes Packs/day: < 1 Pack Are you/the child exposed to second-hand smoke: Yes Alcohol Alcohol: No Hx of Drug Use Drug Use? No Review of Systems Constitutional No: chills. Skin No: contusions. Immune/allergy Positive for: allergy. No: anaphalaxis. Eyes No: vision loss. ENT No: hearing loss. Respiratory No: shortness of air. Cardiovascular No: chest pain. GI Positive for: anorexia. (female) No: hematuria. Musculoskeletal No: extremity swelling. Heme No: adenopathy. Endocrine No: cold intolerance. Physical Exam VS/I&O Vital Signs Date Time Temp Pulse Resp B/P Pulse O2 O2 Flow FiO2 Ox Delivery Rate 04/28 1845 98.2 91 16 105/62 98 04/28 1741 98.2 91 16 105/62 98 Exam General appearance no acute distress, alert Respiratory clear to auscultation Cardiovascular normal heart sounds Abdomen soft Findings/Data Examination she has significant tenderness in the RIGHT lower quadrant with guarding without rebound. Dx/assessment/plan Problem List 1. Acute appendicitis Code status: full code Plan: Plan for surgical intervention with appendectomy. Attempted laparoscopic with possible open procedure and plan for admission postoperative. at 1913
--- NOTE | 2017-04-28 20:39 | Operative Note ---
Surgeon/Diagnoses Surgeon/Lithographic General Worker(s) Date of procedure: 04/28/17 Surgeon: Munir Pacheco Diagnoses Pre-op diagnosis: Acute appendicitis Post-op diagnosis Same Procedure Procedure Procedure: Laparoscopic appendectomy Indications: SHIVANI MCLEOD is a 51 year-old Female with a history of RIGHT lower quadrant pain for 2 days. Became progressively more severe. She was seen in her primary care provider's office and sent to the emergency department for possible appendicitis. CT scan confirmed findings consistent with acute appendicitis. Findings: She had a severely inflamed suppurative appendix with fibrinopurulent exudate without perforation. Appendix was obscured behind the omentum which was densely adherent to the RIGHT lateral abdominal wall from prior gynecologic surgery. Procedure Description: Consent was obtained and patient was taken to the operating room. She was given preoperative intravenous antibiotics. In the operating room she was placed in a supine position. Landers catheter was placed after induction of anesthesia. Abdomen was prepped and draped in standard surgical fashion. Infraumbilical skin incision was made while performing abdominal wall lifted the Veress needle was inserted. CO2 pneumoperitoneum was achieved to 15 mmHg. 10/12 mm optical trocar was inserted at the umbilicus. 5 mm trocar was inserted suprapubically and 5 mm trocar was inserted in the RIGHT upper abdomen. A 5 mm 30 degree laparoscope was inserted through the RIGHT upper abdominal trocar site. Omentum obscured the appendix and this was densely adherent to the RIGHT lateral pelvic wall from adhesions from prior gynecologic surgery. There was however palpable firm induration. Omental attachments were taken down using Mahin ultrasonic harmonic celso exposing the underlying appendix. Appendix was markedly thickened and severely inflamed. It was grasped with an endoscopic Ganesh. Mesoappendix was divided with Mahin ultrasonic harmonic celso with care taken to coagulate the appendiceal artery. Dissection was carried down to the appendiceal base which was rather wide and prominent but noninflamed at the base. The appendix was divided at its base with an endoscopic JOSIE linear cutting stapling device. Appendix was placed within an Endo Catch retrieval device and removed from the peritoneal cavity via the umbilical trocar site. 0 PDS Endoloop was placed on the appendiceal stump. Pericecal and her RIGHT pelvic area was irrigated and aspirated until clear. Trochars were removed as CO2 pneumoperitoneum was evacuated. Fascia at the umbilicus was closed with several interrupted 0 Vicryl sutures. Local anesthetic was infiltrated. Skin incisions were closed with 4-0 Monocryl in a subcuticular fashion. Steri-Strips and clean dry sterile dressings were applied. EBL (ml): 25 Anesthesia: GETA Specimens: Appendix Disposition Disposition: To PACU at 2250
--- NOTE | 2017-04-28 20:48 | Anesthesia Record ---
Anesthesia Record Part II Discharge time: 2109 Destination: Second Floor PACU nurse assessment review? Yes Patient is: Stable Anesthesia complications? No at 2048
--- NOTE | 2017-04-28 20:48 | Anesthesia Record ---
Anesthesia Record Part I Total IV fluids: 1300 EBL (ml): 10 Urine Output: 200 B/P: 135/75 % SaO2: 95 Pulse: 74 Resps: 16 Temp: 97.8 Patient is: Drowsy, Stable Stable to PACU at: 2039 at 2044
[2017-04-28 22:18] LABS: URINE BILIRUBIN - DIPSTICK NEGATIVE (NEG); URINE BLOOD 1+ (NEG)
[2017-04-29 00:05] VITALS: BP 90/52
[2017-04-29 01:05] VITALS: BP 90/55
[2017-04-29 03:05] VITALS: BP 94/52
[2017-04-29 06:05] VITALS: BP 108/65
[2017-04-29 07:31] VITALS: BP 95/62
--- NOTE | 2017-04-29 08:26 | PHARMACY CLINIC NOTE ---
Patient Demographics Patient Demographics Admission date: 04/28/17 Date: 04/29/17 Time: 0825 Allergies Coded Allergies: acetaminophen (From PERCOCET) (Mild, 04/28/17) oxycodone (From PERCOCET) (Mild, 04/28/17) Penicillins (04/28/17) Sulfa (Sulfonamide Antibiotics) (04/28/17) azithromycin (04/28/17) HEIGHT- FT: 5 IN: 8.00 K.534 VTE General Information Labs: Laboratory Tests 04/28 1830 Hematology Hgb (12.2 - 16.2 g/dL) 14.3 Hct (37.0 - 47.0 %) 42.1 Plt Count (142 - 424 K/mm3) 242 Disclaimer The following section includes nursing documentation that has been pulled in for pharmacy review. Patient's VTE score: 4 Patient's VTE Risk: LOW RISK Clinical trial participant? No VTE prophylaxis NQF [id number] VTE prophylaxis ordered? Yes Type of prophylaxis/treatment: ICD (post-op) at 0825
--- NOTE | 2017-04-29 08:46 | ACUTE CARE PROGRESS NOTE (QUA) ---
Progress Notes Subjective Date 04/29/17 Time 0841 Note FAMILY MEDICINE: See H&P from office presentation. Was sent to ER with concern for appendicitis (very tender RLQ). Had slight WBC elevation. Had symptoms for 4 days! Objective Findings Last VS-Temp:97.4 B/P:95/62 Pulse:61 Resp:18 SaO2:96 ROOM AIR Last weight lbs:204 oz:0 K.534 Method:Stated Exam General appearance: normal appearance, alert, no acute distress Cardiovascular: regular rate & rhythm Respiratory: clear to auscultation, good air movement ABD: soft, tenderness (at incision site) Assessment/Plan Problem List 1. Acute appendicitis Plan: Patient was admitted to Dr. Pacheco and underwent appendectomy. I am available if needed. Thanks. This inpt stay is expected to cross 2 MNs from start of care Yes at 0846
[2017-04-29] MEDS ORDERED: HYDROCODONE/APA1 TA8 PO (09:59)
--- NOTE | 2017-04-29 10:05 | DISCHARGE SUMMARY STANDARD ---
Demographics Admit date: 04/28/17 Discharge date: 04/29/17 History of present illness History of present illness Patient is a 51-year-old white female. She began developing some minor abdominal discomfort on 04/25/17. This became more severe the following day. Ultimately the patient was seen in [facility] yesterday afternoon on 04/28/17 and had significant tenderness in the RIGHT lower quadrant. There was concern for appendicitis and she was sent to the emergency department where she underwent a noncontrast CT scan. This revealed findings of acute appendicitis and surgical consultation was obtained. Hospital Course Hospital Course: Patient was seen and examined in the emergency department and taken for appendectomy. She underwent laparoscopic appendectomy and was found to have an acute suppurative nonperforated appendicitis. Please see operative dictation for complete details. She had been given levofloxacin and metronidazole preoperatively and this was continued postoperatively. She was given a full liquid diet. Following morning she felt better other than some abdominal incisional soreness. Plan was made for discharge home. Discharge diagnoses Problem List 1. Acute appendicitis Medications Medications: Discharge meds are as noted. Follow up Follow up in office in: 2 WEEKS with: Munir Pacheco MD at 9330
--- NOTE | 2017-04-29 10:05 | DISCHARGE SUMMARY STANDARD ---
Demographics Admit date: 04/28/17 Discharge date: 04/29/17 History of present illness History of present illness Patient is a 51-year-old white female. She began developing some minor abdominal discomfort on 04/25/17. This became more severe the following day. Ultimately the [facility] afternoon on 04/28/17 and had significant tenderness in the RIGHT lower quadrant. There was concern for appendicitis and she was sent to the emergency department where she underwent a noncontrast CT scan. This revealed findings of acute appendicitis and surgical consultation was obtained. Hospital Course Hospital Course: Patient was seen and examined in the emergency department and taken for appendectomy. She underwent laparoscopic appendectomy and was found to have an acute suppurative nonperforated appendicitis. Please see operative dictation for complete details. She had been given levofloxacin and metronidazole preoperatively and this was continued postoperatively. She was given a full liquid diet. Following morning she felt better other than some abdominal incisional soreness. Plan was made for discharge home. Discharge diagnoses Problem List 1. Acute appendicitis Medications Medications: Discharge meds are as noted. Follow up Follow up in office in: 2 WEEKS with: Munir Pacheco MD at [id number]
[2017-04-29 10:36] VITALS: BP 95/62
== END 2017-04-29 11:25 | disposition home or self-care (01) ==
LOC: ER 17:37 → SDC 19:25 → 2ND 19:38
PROVIDERS: Emergency Medicine; Surgery
PROC: 0DTJ4ZZ Resection of Appendix, Percutaneous Endoscopic Approach (ICD-10-PCS; principal; 2017-04-28 19:00)
DX: K35.80 Unspecified acute appendicitis (principal)
CPT/HCPCS: G0238; G0378; J0131; J2405; J2710